=== PATIENT | male | born 1955 | race Caucasian/White ===

== ENCOUNTER 2019-07-24 06:55 | Outpatient (CLI) | payer MEDICARE, SELFPAY | END 2019-07-24 06:56 | disposition home or self-care (01) | LOC: ANHAUDIO 06:57 | PROVIDERS: PCP Physician Assistant; Visit Provider Family Medicine | DX: H90.3 Sensorineural hearing loss, bilateral (principal) | CPT/HCPCS: 92557; 92567 ==

== ENCOUNTER 2019-10-30 01:40 | Day surgery (SDC) | payer MEDICARE, SELFPAY ==
[2019-10-28 14:18] VITALS: BMI 23.7
[2019-10-30] MEDS: LACTATED RINGERS 1,000 ML 150 ML IV CONT (07:17)
[2019-10-30 07:19] VITALS: BP 130/87; PULSE 63; RESP 20; TEMP 36.3; O2SAT 100; BMI 23.0
--- NOTE | 2019-10-30 07:54 | P.PNAN_ITS ---
Anes - Initial Pre Proc Eval Procedure: Operation Date: 10/30/19 08:00 Proposed Procedures p Screening Colonoscopy - Dequan Martino MD Date/Time: 10/30/19 07:54 Surgeon: Dequan Martino MD Pre Op Diagnosis: Neoplasm Screening/Hx Colon Polyps/Fam Hx Colon Ca Patient Data Age: 64 Gender: M Height: 5 ft 10 in Weight: 72.9 kg Last Vital Signs Temp 97.4 F L 10/30/19 07:19 Pulse 63 10/30/19 07:19 Resp 20 10/30/19 07:19 BP 130/87 10/30/19 07:19 Pulse Ox 100 10/30/19 07:19 Allergies Allergy/AdvReac Type Severity Reaction Status Date / Time No Known Allergies Allergy Unverified 10/30/19 07:19 Home Medications Medication Instructions Recorded Confirmed Type losartan 50 mg tablet 50 mg PO DAILY 08/24/19 10/28/19 History rituximab See Rx Instructions .ROUTE .COMPLEX 10/28/19 10/28/19 History Patient hx anesthesia problems: none Family hx anesthesia problems: none [facility] Past Medical History Medical History (Updated 10/30/19 @ 07:54 by Mikhail Delgado MD) Hypertension Loc's granulomatosis with renal involvement 2015 now resolved; sees nephrology Social History Social History Smoking status: Never smoker Second hand tobacco smoke exposure: No Alcohol intake: current Anes - Eval Final PreProcedure Day of Procedure 10/30/19 07:54 Patient weight: normal Heart: regular rate and rhythm Lungs: clear to auscultation Airway: Mallampati scale class II Neurological: alert and oriented Last oral intake: >/= 8 hours ASA classification: III Emergent: no Anesthetic plan: proceed Anesthesia type and monitoring: general GIVS and standard monitoring Informed Consent: The patient's anesthetic plan and its attendant risks and benefits were discussed with the patient/family/POA. Questions were solicited and answers provided to the satisfaction of the patient/family/POA.
--- NOTE | 2019-10-30 08:24 | WPDGICN ---
Assessment and Plan Additional Plan This is a 64-year-old white male patient seen in evaluation at the request of Dr. Garces. Patient presents for screening colonoscopy. His states that his current weight appetite bowel movements are normal. He denies any blood in his stools. He denies abdominal pain is bowel habits are regular. Past medical history is significant for blindness. Hypertension and Loc's granulomatosis. Family history is significant his father had colon cancer is grandfather had an unspecified GI malignancy. His maternal aunt has colon cancer. Patient's most recent colonoscopy revealed a hyperplastic colon polyp 3 years ago. Physical exam reveals patient to be alert. He has poor eyesight. Lungs are clear. Heart is without murmur. Abdominal exam bowel sounds are present soft nontender with no organomegaly. Digital external rectal exam normal. Impression 1. Family history of colon cancer. Plan is for surveillance colonoscopy now and at intervals in the future. GI Consult Note Consult date/time: 10/30/19 08:24 HPI: Jt Lunsford is a 64 year old male [facility] Past Medical History Medical History (Updated 10/30/19 @ 07:54 by Mikhail Delgado MD) Hypertension Loc's granulomatosis with renal involvement 2014 now resolved; sees nephrology Social History Social History Smoking status: Never smoker Second hand tobacco smoke exposure: No Alcohol intake: current Meds Home Medications and Allergies Home Medications Medication Instructions Recorded Confirmed Type losartan 50 mg tablet 50 mg PO DAILY 08/24/19 10/28/19 History rituximab See Rx Instructions .ROUTE .COMPLEX 10/28/19 10/28/19 History Allergies Allergy/AdvReac Type Severity Reaction Status Date / Time No Known Allergies Allergy Unverified 10/30/19 07:19 Vital Signs Vital Signs - 24 hr 10/30/19 07:19 Temperature 36.3 C L Pulse Rate 63 Respiratory Rate 20 Blood Pressure 130/87 Pulse Oximetry 100
[2019-10-30 09:06] VITALS: BP 105/67; PULSE 51; RESP 16; O2SAT 100
[2019-10-30 09:16] VITALS: BP 95/66; PULSE 47; RESP 16; O2SAT 100
[2019-10-30 09:26] VITALS: BP 114/79; PULSE 48; RESP 16; O2SAT 100
== END 2019-10-30 09:30 | disposition home or self-care (01) ==
PROVIDERS: PCP Family Medicine; Visit Provider Internal Medicine Gastroenterology
PROC: 0DJD8ZZ Inspection of Lower Intestinal Tract, Via Natural or Artificial Opening Endoscopic (ICD-10-PCS; CPT 45378; principal; 2019-10-30 08:00)
DX: Z12.11 Encounter for screening for malignant neoplasm of colon (principal); Z80.0 Family history of malignant neoplasm of digestive organs; I10 Essential (primary) hypertension; M31.31 Wegener's granulomatosis with renal involvement
CPT/HCPCS: G0105; J2704; J7120

== ENCOUNTER 2021-02-02 13:44 | Outpatient (CLI) | payer MEDICARE, SELFPAY ==
--- NOTE | ~2021-02-02 | MR_ITS ---
EXAMINATION: MR knee RT wo con DATE: 02/02/2021 15:05 INDICATION: Murmur osteoarthritis of the right knee TECHNIQUE: Magnetic resonance imaging (MRI) of the right knee was performed without intravenous contr ast. Sequences included coronal PD-weighted FSE, coronal PD-weighted FS FSE, sagittal T2-weighted FS E, sagittal PD-weighted FS FSE and axial PD weighted fat saturated FSE. COMPARISON: None. FINDINGS: Medial compartment: Complex tear of the body and posterior horn of the medial meniscus with medial extrusion of the menis mary body. There is extensive deep chondral fissuring involving greater than 50% the cartilage thickne ss at the anterior to central weightbearing medial femoral condyle with subtle irregularity to the un derlying articular cortex and subarticular edema. There is diffuse thinning of the cartilage but with smooth chondral surface at the medial tibial plateau. Lateral compartment: Lateral meniscus is normal. Articular cartilage is normal. Patellofemoral compartment: Chondral fissuring and surface irregularity at the medial patellar facet. Cartilage at the lateral fa cet, apical ridge and trochlea appears relatively preserved. Ligaments and tendons: Anterior cruciate ligament is normal. Mild thickening of the vertical portion of the posterior crucia te ligament is measures 9 mm AP with minimal increased signal which is equivocal for tear. There is f luid signal extending onto the deep and superficial margin of the otherwise normal-appearing medial c ollateral ligament which could be seen with acute low-grade sprain or could be related to reactive ed fritz seen more diffusely about the medial aspect of the knee likely resulting from the meniscal tear. The fibular collateral ligament complex is normal. The extensor mechanism is normal. The visualized m edial and lateral hamstring tendons as well as the iliotibial band are normal. Fluid: Small right knee joint effusion. No loose osteochondral bodies identified. Mildly lobulated 3.3 x 1.5 x 1.6 cm ganglion cyst at the popliteal recess. Osseous/other: There are couple low signal intensity bone islands at the medial and lateral femoral condyles. Normal marrow signal aside from the reactive edema along the weightbearing medial femoral condyle. No fract ure or pathologic marrow replacing process. IMPRESSION: 1. Complex medial meniscal tear and mild osteoarthritis in the medial compartment with high-grade cho ndromalacia along the anterior to central weightbearing medial femoral condyle. 2. Mild patellofemoral osteoarthritis with moderate grade chondromalacia at the medial patellar facet . 3. Mild thickening and subtle increased signal in the posterior cruciate ligament which is equivocal for tear 4. Fluid along the otherwise normal-appearing medial collateral ligament which could represent low-gr sol sprain in the acute setting could be related to edema associated with the medial meniscal tear. 4. Small right knee joint effusion and moderate-sized ganglion cyst at the popliteal recess. Reviewed, dictated and finalized at location A. IMPRESSION: 1. Complex medial meniscal tear and mild osteoarthritis in the medial compartme nt with high-grade chondromalacia along the anterior to central weightbearing m edial femoral condyle. 2. Mild patellofemoral osteoarthritis with moderate grade chondromalacia at the medial patellar facet. 3. Mild thickening and subtle increased signal in the posterior cruciate ligame nt which is equivocal for tear 4. Fluid along the otherwise normal-appearing medial collateral ligament which could represent low-grade sprain in the acute setting could be related to edema associated with the medial meniscal tear. 4. Small right knee joint effusion and modera
== END 2021-02-02 13:45 | disposition home or self-care (01) ==
LOC: ANHIMG 13:50
PROVIDERS: PCP Family Medicine; Visit Provider Internal Medicine
DX: M17.11 Unilateral primary osteoarthritis, right knee (principal); S83.231A Complex tear of medial meniscus, current injury, right knee, initial encounter; M22.41 Chondromalacia patellae, right knee; M25.461 Effusion, right knee; M67.461 Ganglion, right knee
CPT/HCPCS: 73721

== ENCOUNTER → 2021-08-17 02:09 | Outpatient (CLI) | payer MEDICARE, SELFPAY ==
[2021-08-17 20:34] LABS: SARS-CoV-2 RNA PCR Negative
== END ==
PROVIDERS: PCP Family Medicine; Visit Provider Physician Assistant
DX: Z20.822 Contact with and (suspected) exposure to COVID-19 (principal)
CPT/HCPCS: C9803; U0003; U0005

== ENCOUNTER 2022-07-17 15:20 | Outpatient (CLI) | payer MEDICARE, SELFPAY ==
--- NOTE | ~2022-07-17 | MR_ITS ---
EXAMINATION: MR lumbar spine wo con DATE: 07/17/2022 16:44 INDICATION: Lumbar stenosis. Chronic low back pain. TECHNIQUE: Magnetic resonance imaging (MRI) of the lumbar spine was performed without intravenous con trast. Sequences included sagittal T2-weighted FSE, sagittal T2-weighted FS FSE, sagittal T1-weighted FSE, and axial T2-weighted FSE. COMPARISON: Lumbar spine MRI 08/31/2016 FINDINGS: There is 22 degrees levoscoliosis of lumbar spine. There are Schmorl's nodes at multiple le vels. There is mildly decreased disc height from T11-T12 through L1-L2, moderately decreased disc hei ght at L2-L3, severely decreased disc height at L3-L4, moderately decreased disc height at L4-L5, and severely decreased disc height at L5-S1 with endplate remodeling. The distal spinal cord signal inte nsity is normal. The conus medullaris is at L1-L2. The following disc levels are specifically discuss ed: L1-L2: The disc is bulging. There is mild bilateral facet joint osteoarthritis. There is mild bilater al neural foraminal stenosis. There is mild central canal stenosis. L2-L3: The disc is bulging and has an annular fissure. There is moderate bilateral facet joint osteoa rthritis. There is mild bilateral neural foraminal stenosis. There is moderate central canal stenosis . L3-L4: The disc is bulging and has an annular fissure. There is severe right and moderate left facet joint osteoarthritis. There is moderate right and mild left neural foraminal stenosis. There is mild central canal stenosis. L4-L5: The disc is bulging and has an annular fissure. There is severe bilateral facet joint osteoart hritis. There is moderate right and severe left neural foraminal stenosis. There is mild central jayden l stenosis. L5-S1: The disc is bulging and has an annular fissure. There is moderate right and severe left facet joint osteoarthritis. There is mild right and moderate left neural foraminal stenosis. There is mild central canal stenosis. IMPRESSION: 1. Severe lumbar spondylosis, mildly worsened from 08/31/2016. 2. Lumbar levoscoliosis. Reviewed, dictated and finalized at location A. [employer]
== END 2022-07-17 15:21 | disposition home or self-care (01) ==
PROVIDERS: PCP Family Medicine; Visit Provider Physician Assistant
DX: M48.062 Spinal stenosis, lumbar region with neurogenic claudication (principal); M47.816 Spondylosis without myelopathy or radiculopathy, lumbar region; M41.86 Other forms of scoliosis, lumbar region
CPT/HCPCS: 72148

== ENCOUNTER → 2022-08-17 11:12 | Outpatient (CLI) | payer MEDICARE, SELFPAY ==
--- NOTE | ~2022-08-17 | XR_ITS ---
Left Shoulder Technique: AP and scapular Y views were obtained. Clinical History: Pain Findings: No fracture or dislocation is seen. Osseous alignment is anatomic. The glenohumeral and acr omioclavicular joint spaces are preserved. Soft tissues are unremarkable. Impression: Unremarkable left shoulder radiographs. Reviewed, dictated and finalized at [facility]. [employer] SURGICAL ASSISTANT Impression: Unremarkable left shoulder radiographs.
--- NOTE | ~2022-08-17 | MR_ITS ---
MRI of the cervical spine Clinical History: Pain Technique: Axial T2-weighted and gradient images, and sagittal T1-weighted, T2-weighted, and STIR padmini ges were acquired. Findings: There is no fracture or subluxation of the cervical spine. Vertebral bodies maintain normal height and alignment. No focal bone marrow signal abnormality seen. At C2-C3, there is no disc bulge or herniation. No spinal canal stenosis, cord compression, or neural foraminal narrowing. At C3-C4, there is no significant disc bulge or herniation. Probable mild right neural foraminal narr owing. Left neural foramen preserved. No spinal canal stenosis or cord compression. At C4-C5, no significant disc bulge or herniation seen. No spinal canal stenosis, cord compression, o r neural foraminal narrowing. At C5-C6, there is minimal disc osteophyte complex. No kyra spinal canal stenosis or cord compressio n. Bilateral neural foramina are preserved. At C6-C7, there is minimal disc osteophyte complex. No kyra spinal canal stenosis or cord compressio n. Probable mild left neural foraminal narrowing and minimal right neural foraminal narrowing. No abnormal signal seen in the spinal cord. Paravertebral soft tissues are unremarkable. Impression: Mild degenerative spondylosis, as detailed above. Reviewed, dictated and finalized at location . [facility] Impression: Mild degenerative spondylosis, as detailed above.
== END ==
PROVIDERS: PCP Physician Assistant; Visit Provider Physician Assistant
DX: M47.812 Spondylosis without myelopathy or radiculopathy, cervical region (principal); M25.512 Pain in left shoulder
CPT/HCPCS: 72141; 73030

== ENCOUNTER 2022-11-09 09:41 | Outpatient (CLI) | payer MEDICARE, SELFPAY ==
[2022-11-09 19:11] LABS: Basophils Absolute Auto 0.1 K/mm3 (0.0-0.1); Basophils Percent Auto 0.7 % (0.2-1.2); Eosinophils Absolute Auto 0.1 K/mm3 (0-0.3); Eosinophils Percent Auto 0.7 % (0-4.4); Hemoglobin 14.9 g/dL (14.0-18.0); Immature Granulocyte Absolute 0.02 K/mm3 (0.00-0.031); Immature Granulocyte Percent A 0.2 % (0-0.5); Lymphocytes Absolute Auto 0.76 K/mm3 (0.9-3.2); Mean Corpuscular HGB Conc 33.1 g/dl (32-36); Mean Corpuscular Hemoglobin 31.8 pg (26-34); Mean Corpuscular Volume 95.9 fl (80-100); Mean Platelet Volume 11.6 fl (7.4-10.4); Monocytes Absolute Auto 0.9 K/mm3 (0.1-0.6); Monocytes Percent Auto 10.8 % (2.6-8.5); Neutrophils Absolute Auto 6.6 K/mm3 (1.3-6.7); Neutrophils Percent Auto 78.6 % (45.5-73.1); Platelet Count Result 173 k/mm3 (150-375); Red Blood Count 4.69 M/mm3 (4.6-6.20); Red Cell Distribution Width 12.8 % (11.5-14.5); White Blood Count 8.4 K/mm3 (4.5-10.0)
[2022-11-09 22:10] LABS: Alanine Aminotransferase 21 U/L (6-50); Albumin Level 4.7 g/dL (3.5-5.1); Alkaline Phosphatase 74 U/L (38-126); Anion Gap 11 mmol/L (8-16); Aspartate Amino Transferase 36 U/L (17-59); Blood Urea Nitrogen 24 mg/dL (9-20); Calcium 9.3 mg/dL (8.4-10.2); Carbon Dioxide 22 mmol/L (22-30); Chloride 102 mmol/L (98-107); Cholesterol 187 mg/dL (0-200); Estimated Glomerular Filt Rate 46; Glucose 83 mg/dL (65-110); HDL Direct 84 mg/dL; Potassium 5.1 mmol/L (3.4-5.0); Sodium 135 mmol/L (137-145); Triglycerides 76 mg/dL (<150)
[2022-11-09 22:21] LABS: LDL Cholesterol Direct 81 mg/dL
[2022-11-09 22:40] LABS: Prostate Specific Antigen 0.6 ng/mL (< OR = 4.0)
[2022-11-10 01:03] LABS: Hepatitis C Virus Antibody Negative (Negative)
== END 2022-11-09 09:42 | disposition home or self-care (01) ==
PROVIDERS: PCP Physician Assistant; Visit Provider Family Medicine
DX: I77.6 Arteritis, unspecified (principal); R73.01 Impaired fasting glucose; Z12.5 Encounter for screening for malignant neoplasm of prostate; N08 Glomerular disorders in diseases classified elsewhere; Z11.59 Encounter for screening for other viral diseases; I10 Essential (primary) hypertension
CPT/HCPCS: 36415; 80053; 80061; 82248; 83036; 84153; 85025; 86803; G0103

== ENCOUNTER → 2023-03-25 15:47 | Outpatient (CLI) | payer MEDICARE, SELFPAY ==
--- NOTE | ~2023-03-25 | XR_ITS ---
EXAMINATION: XR chest 2V DATE: 03/25/2023 16:21 INDICATION: Shortness of breath TECHNIQUE: frontal and lateral views of the chest were obtained. COMPARISON: Chest radiograph dated 07/07/2016 FINDINGS: Again seen are linear and curvilinear opacities in the right lower lobe consistent with chronic atele ctasis/scarring. No new airspace opacities, pulmonary edema, pleural effusion or pneumothorax. The ca rdiomediastinal silhouette is normal. Mild thoracolumbar dextroscoliosis with moderate spondylosis. IMPRESSION: 1. Chronic atelectasis/scarring in the right lower lobe. No acute cardiopulmonary disease. Reviewed, dictated and finalized at location B. IMPRESSION: 1. Chronic atelectasis/scarring in the right lower lobe. No acute cardiopulmona ry disease.
== END ==
PROVIDERS: PCP Family Medicine; Visit Provider Physician Assistant
DX: R06.02 Shortness of breath (principal); R91.8 Other nonspecific abnormal finding of lung field
CPT/HCPCS: 71046

== ENCOUNTER 2023-03-25 16:02 | Outpatient (CLI) | payer MEDICARE, SELFPAY ==
[2023-03-25 18:35] LABS: Alanine Aminotransferase 26 U/L (6-50); Albumin Level 4.4 g/dL (3.5-5.1); Alkaline Phosphatase 74 U/L (38-126); Anion Gap 7 mmol/L (8-16); Aspartate Amino Transferase 45 U/L (17-59); Bilirubin,Total 1.3 mg/dL (0.2-1.3); Blood Urea Nitrogen 22 mg/dL (9-20); Calcium 9.2 mg/dL (8.4-10.2); Carbon Dioxide 28 mmol/L (22-30); Chloride 100 mmol/L (98-107); Estimated Glomerular Filt Rate 43; Glucose 99 mg/dL (65-110); Potassium 4.7 mmol/L (3.4-5.0); Sodium 135 mmol/L (137-145)
[2023-03-25 18:47] LABS: Basophils Absolute Auto 0.1 K/mm3 (0.0-0.1); Basophils Percent Auto 0.7 % (0.2-1.2); Eosinophils Absolute Auto 0.1 K/mm3 (0-0.3); Eosinophils Percent Auto 1.3 % (0-4.4); Hematocrit 38.9 % (42.0-52.0); Hemoglobin 12.6 g/dL (14.0-18.0); Immature Granulocyte Absolute 0.04 K/mm3 (0.00-0.031); Immature Granulocyte Percent A 0.4 % (0-0.5); Lymphocytes Absolute Auto 1.37 K/mm3 (0.9-3.2); Lymphocytes Percent Auto 12.3 % (18.3-44.2); Mean Corpuscular HGB Conc 32.4 g/dl (32-36); Mean Corpuscular Hemoglobin 31.7 pg (26-34); Monocytes Absolute Auto 1.3 K/mm3 (0.1-0.6); Monocytes Percent Auto 11.7 % (2.6-8.5); Neutrophils Absolute Auto 8.2 K/mm3 (1.3-6.7); Neutrophils Percent Auto 73.6 % (45.5-73.1); Platelet Count Result 183 k/mm3 (150-375); Red Blood Count 3.97 M/mm3 (4.6-6.20); Red Cell Distribution Width 13.3 % (11.5-14.5); White Blood Count 11.1 K/mm3 (4.5-10.0)
== END 2023-03-25 16:03 | disposition home or self-care (01) ==
LOC: ANHGOSHLAB 16:04
PROVIDERS: PCP Family Medicine; Visit Provider Physician Assistant
DX: R06.02 Shortness of breath (principal)
CPT/HCPCS: 36415; 80053; 85025

== ENCOUNTER 2023-06-21 09:19 | Outpatient (CLI) | payer MEDICARE, SELFPAY ==
--- NOTE | 2023-06-21 09:34 | ECHO_ITS ---
Patient Info Name: Jt Lunsford Age: 68 years : 1955 Gender: Male Ht: 70 in Wt: 165 lbs BSA: 1.93 m2 HR: 52 bpm BP: 157 / 97 mmHg Technical Quality: Good Exam Date: 06/21/2023 9:55 AM Exam Location: Echo Lab Patient Status: Outpatient Admit Date: 06/21/2023 Staff Ordering Physician: Alfa Hdz DO Roofer Metal: Sharyn Deleon RDCS Attending Provider: Alfa Hdz DO Referring Physician: Wilder RAMIREZ; Exam Type: CA echo doppler color flow Study Info Indications R06.09 - Other forms of dyspnea Complete two-dimensional, color flow and Doppler transthoracic echocardiogram is performed. Summary 1. Complete two-dimensional, color flow and Doppler transthoracic echocardiogram is performed. 2. Left ventricular chamber dimension is normal. 3. Left ventricular systolic function is normal, estimated at 60-65%. 4. The left ventricular diastolic function is grade II diastolic dysfunction. 5. E/e' 10 is mildly elevated. 6. Global longitudinal strain is normal at -19.9%. 7. Left atrial chamber dimension is moderately enlarged. 8. Right atrial chamber dimension is moderately enlarged. 9. There is mild aortic valve sclerosis. 10. The mitral valve has mildly calcified annulus. 11. There is mild mitral valve regurgitation. 12. There is mild tricuspid valve regurgitation. 13. No pulmonary hypertension, estimated pulmonary arterial systolic pressure is 25 mmHg. Left Ventricle E/e' 10 is mildly elevated. Global longitudinal strain is normal at -19.9%. Left ventricular chamber dimension is normal. Left ventricular systolic function is normal, estimated at 60-65%. The left ventricular diastolic function is grade II diastolic dysfunction. Right Ventricle Right ventricular chamber dimension is normal. Right ventricular systolic function is normal. Left Atria Left atrial chamber dimension is moderately enlarged. Right Atria Right atrial chamber dimension is moderately enlarged. Aortic Valve The aortic valve is trileaflet. There is mild aortic valve sclerosis. There is no aortic valve stenosis. There is no aortic valve regurgitation. Pulmonic Valve There is no pulmonic regurgitation. Mitral Valve The mitral valve has mildly calcified annulus. There is no mitral valve stenosis. There is mild mitral valve regurgitation. Tricuspid Valve There is mild tricuspid valve regurgitation. No pulmonary hypertension, estimated pulmonary arterial systolic pressure is 25 mmHg. Pericardium/Pleural There is no pericardial effusion. Inferior Vena Cava Normal inferior vena cava with >50% collapse upon inspiration consistent with normal right atrial pressure, 5 mmHg. Aorta The aortic root size at the sinus of Valsalva is normal. Left Ventricular Outflow Tract Name Value Normal LVOT 2D LVOT Diameter 2.1 cm LVOT Doppler LVOT Peak Gradient 4 mmHg LVOT Mean Gradient 2 mmHg LVOT VTI 22 cm LVOT VTI/AV VTI Ratio 0.9 LVOT Stroke Volume 79 ml LVOT CO 13.9 l/min LVOT CI 7.2 l/min/m2
== END 2023-06-21 09:20 | disposition home or self-care (01) ==
PROVIDERS: PCP Family Medicine; Visit Provider Internal Medicine Cardiovascular Disease
DX: R06.09 Other forms of dyspnea (principal); I08.3 Combined rheumatic disorders of mitral, aortic and tricuspid valves
CPT/HCPCS: 93306

== ENCOUNTER 2023-08-14 00:18 | Day surgery (SDC) | payer MEDICARE, SELFPAY ==
[2023-07-24 14:10] VITALS: BMI 23.7
--- NOTE | 2023-08-13 11:32 | SUR.PREOP ---
Patient called regarding upcoming procedure. Reviewed preop instructions, appointment times, and procedure prep.
--- NOTE | 2023-08-13 11:33 | SUR.PREOP ---
Patient called regarding upcoming procedure. Reviewed preop instructions, appointment times, and procedure prep.
--- NOTE | 2023-08-13 13:38 | PM.HPGS ---
History of Present Illness History of Present Illness Consent: Risks, benefits, and alternatives have been discussed and questions answered. Patient agrees to proceed with procedure. Chief complaint: family hx of colon ca Narrative: Jt Lunsford is a 68 year old male Referred for colon cancer screening. He has a family history of colon cancer. His father had colon cancer. His last colonoscopy was just under 4 years ago. Review of Systems Review of Systems: All systems reviewed & are unremarkable except as noted in HPI and below PMFSH Past Medical History Medical History Hypertension Severe anemia Loc's granulomatosis with renal involvement 2015 now resolved; sees nephrology Family History Family History Sibling Family history of obesity Acute myocardial infarction, Onset Age: 58 Grandparent Family history of cardiovascular disease, Onset Age: 80 Mother Family history of kidney disease Father Carcinoma of colon Other Family history of ulcerative colitis Social History Social History Social History: Caffeine-daily Smoking status: Never smoker Second hand tobacco smoke exposure: No Alcohol intake: current Drinks per week: 20 Alcohol use details: red wine Substance use: never Substance use type: does not use Lack of Transportation: No Lack of Food: Never True Current Housing: I Have Housing Concerned About Future Housing: No Difficulty Paying Gas/Electric Bills: No Difficulty Paying for Meds: No Currently Unemployed: No Education: Master's Degree or Higher Difficulty w/ Childcare or Family Care: No Living arrangements: with family Spiritual care concerns: No Meds Home Medications and Allergies Home Medications Medication Instructions Recorded Confirmed Type losartan 50 mg tablet 50 mg PO DAILY 08/24/19 07/30/23 History cholecalciferol (vitamin D3) 25 25 mcg PO DAILY 09/19/21 07/30/23 History mcg (1,000 unit) capsule rituximab 10 mg/mL See Rx Instructions .Route .COMPLEX 08/06/22 07/30/23 History concentrate,intravenous sildenafil 100 mg tablet 100 mg PO DAILY PRN sexual 11/20/22 07/30/23 Rx activity #14 tabs peg 3350-electrolytes 236 240 ml PO Q10M #4,000 mL 07/24/23 07/30/23 Rx gram-22.74 gram-6.74 gram-5.86 gram solution (Golytely) metronidazole 0.75 % topical cream 1 applic topical DAILY #45 grams 07/30/23 07/30/23 Rx Allergies Allergy/AdvReac Type Severity Reaction Status Date / Time dapsone Allergy Intermediate Dyspnea / Verified 08/14/23 12:03 SOB sulfamethoxazole Allergy Intermediate Other Verified 08/14/23 12:03 [From Bactrim] trimethoprim [From Bactrim] Allergy Intermediate Other Verified 08/14/23 12:03 NSAIDS (Non-Steroidal AdvReac Severe kidney Verified 08/14/23 12:03 Anti-Inflamma toxicity Exam Resp: Auscultation: clear to auscultation bilaterally Cardio: Rate: regular rate Rhythm: regular rhythm GI: GI Palp: Yes Soft to palpation and No Tenderness to palpation present (GI) Assessment and Plan Assessment and plan (1) Colon cancer screening: Code(s): Z12.11 - Encounter for screening for malignant neoplasm of colon Status: Acute Assessment and Plan: Colonoscopy with possible biopsy or polypectomy or cautery or injection of substances.
[2023-08-14 12:04] VITALS: BP 127/79; PULSE 62; RESP 19; TEMP 36.2; O2SAT 100
[2023-08-14] MEDS: LACTATED RINGERS 1,000 ML 150 ML IV CONT (12:14)
--- NOTE | 2023-08-14 12:17 | WPDANESEPPF ---
Anes - Initial Pre Proc Eval Procedure: Operation Date: 08/14/23 13:00 Proposed Procedures p Colonoscopy - Caesar Jane MD Date/Time: 08/14/23 12:17 Surgeon: Caesar Jane MD Pre Op Diagnosis: family hx of colon ca Patient Data Age: 68 Gender: M Height: 1.78 m Weight: 73.3 kg Last Vital Signs Temp 97.1 F L 08/14/23 12:04 Pulse 62 08/14/23 12:04 Resp 19 08/14/23 12:04 BP 127/79 08/14/23 12:04 Pulse Ox 100 08/14/23 12:04 O2 Del Method Room Air 08/14/23 12:04 Allergies Allergy/AdvReac Type Severity Reaction Status Date / Time dapsone Allergy Intermediate Dyspnea / Verified 08/14/23 12:03 SOB sulfamethoxazole Allergy Intermediate Other Verified 08/14/23 12:03 [From Bactrim] trimethoprim [From Bactrim] Allergy Intermediate Other Verified 08/14/23 12:03 NSAIDS (Non-Steroidal AdvReac Severe kidney Verified 08/14/23 12:03 Anti-Inflamma toxicity Home Medications Medication Instructions Recorded Confirmed Type losartan 50 mg tablet 50 mg PO DAILY 08/24/19 07/30/23 History cholecalciferol (vitamin D3) 25 25 mcg PO DAILY 09/19/21 07/30/23 History mcg (1,000 unit) capsule rituximab 10 mg/mL See Rx Instructions .Route .COMPLEX 08/06/22 07/30/23 History concentrate,intravenous sildenafil 100 mg tablet 100 mg PO DAILY PRN sexual 11/20/22 07/30/23 Rx activity #14 tabs peg 3350-electrolytes 236 240 ml PO Q10M #4,000 mL 07/24/23 07/30/23 Rx gram-22.74 gram-6.74 gram-5.86 gram solution (Golytely) metronidazole 0.75 % topical cream 1 applic topical DAILY #45 grams 07/30/23 07/30/23 Rx Patient hx anesthesia problems: none Family hx anesthesia problems: none Results Review: All pre-operative results and documents have been reviewed as part of the pre-operative evaluation. [facility] Past Medical History Medical History Hypertension Severe anemia Loc's granulomatosis with renal involvement 2015 now resolved; sees nephrology Family History Family History Sibling Family history of obesity Acute myocardial infarction, Onset Age: 58 Grandparent Family history of cardiovascular disease, Onset Age: 80 Mother Family history of kidney disease Father Carcinoma of colon Other Family history of ulcerative colitis Social History Social History Social History: Caffeine-daily Smoking status: Never smoker Second hand tobacco smoke exposure: No Alcohol intake: current Drinks per week: 20 Alcohol use details: red wine Substance use: never Substance use type: does not use Lack of Transportation: No Lack of Food: Never True Current Housing: I Have Housing Concerned About Future Housing: No Difficulty Paying Gas/Electric Bills: No Difficulty Paying for Meds: No Currently Unemployed: No Education: Master's Degree or Higher Difficulty w/ Childcare or Family Care: No Living arrangements: with family Spiritual care concerns: No Anes - Eval Final PreProcedure Day of Procedure 08/14/23 12:17 Patient weight: normal Heart: regular rate and rhythm Lungs: clear to auscultation Airway: Mallampati scale class II Neurological: alert and oriented Last oral intake: >/= 8 hours ASA classification: III Emergent: no Anesthetic plan: proceed Anesthesia type and monitoring: general GIVS and standard monitoring Results Review: All pre-operative results and documents have been reviewed as part of the pre-operative evaluation. Informed Consent: The patient's anesthetic plan and its attendant risks and benefits were discussed with the patient/family/POA. Questions were solicited and answers provided to the satisfaction of the patient/family/POA.
[2023-08-14 12:56] VITALS: BP 81/50; PULSE 50; RESP 17; O2SAT 95
[2023-08-14 13:06] VITALS: BP 105/67; PULSE 51; RESP 20; O2SAT 100
[2023-08-14 13:16] VITALS: BP 103/64; PULSE 50; RESP 21; O2SAT 100
== END 2023-08-14 13:28 | disposition home or self-care (01) ==
PROVIDERS: PCP Family Medicine; Visit Provider Internal Medicine Gastroenterology
PROC: 0DJD8ZZ Inspection of Lower Intestinal Tract, Via Natural or Artificial Opening Endoscopic (ICD-10-PCS; CPT 45378; principal; 2023-08-14 13:00)
DX: Z12.11 Encounter for screening for malignant neoplasm of colon (principal); K63.5 Polyp of colon; K64.8 Other hemorrhoids; K57.30 Diverticulosis of large intestine without perforation or abscess without bleeding; I10 Essential (primary) hypertension; D64.89 Other specified anemias; Z80.0 Family history of malignant neoplasm of digestive organs; Z82.49 Family history of ischemic heart disease and other diseases of the circulatory system
CPT/HCPCS: 45385; 88305; J2704; J7120